=== PATIENT | male | born 1960 | race Caucasian/White ===

== ENCOUNTER 2023-12-04 00:52 | Observation (INO) | payer BC, SELFPAY ==
[2023-12-03 19:40] VITALS: BP 136/93
[2023-12-03 19:50] VITALS: BMI 28.7
--- NOTE | 2023-12-03 19:51 | EDRN ---
Pt reports hx of prostate cancer with radiation, has had about 1.5 weeks of urinating and at the end of the stream with drops of blood. Last night when he voided it was all blood. Pt states he takes aspirin and brilinta and last night was having
shoulder pain so he took a few advil. Pt was in [facility] and before he got on the plane around 11am urinated blood with 'tissue' in it. Pt has not been able to urinate since. Pt reports bladder discomfort.
[2023-12-03 20:58] VITALS: BP 122/85
[2023-12-03 20:59] LABS: % Eosinophils 4.5 % (0-6); % Immature Granulocytes 0.2 % (0-0.5); % Lymphocytes 16.1 % (20.5-51.1); % Monocytes 10.2 % (1.7-9.3); Absolute Basophils 0.1 10^3/uL (0-0.2); Absolute Eosinophils 0.3 10^3/uL (0-0.7); Absolute Monocytes 0.6 10^3/uL (0.1-0.6); Absolute Neutrophils 4.3 10^3/uL (1.4-6.5); Hematocrit 36.4 % (39.0-52.0); Hemoglobin 13.5 g/dL (13.0-18.0); Mean Corp Hgb Conc. 37.1 g/dL (33.0-37.0); Mean Corpuscular Volume 94.3 fL (80.0-94.0); Mean Platelet Volume 9.9 fL (7.4-10.4); Nucleated Red Blood Cells % 0 % (-); Platelet Count 224 10^3/uL (130-400); Red Blood Cell Count 3.86 10^6/uL (4.70-6.10); Red Cell Dist. Width 12.8 % (11.5-14.5); White Blood Cell Count 6.3 10^3/uL (4.8-10.8)
[2023-12-03 21:01] VITALS: BP 106/83
[2023-12-03 21:12] LABS: Blood Urea Nitrogen 21 mg/dl (9-20); Calcium 9.2 mg/dl (8.4-10.2); Carbon Dioxide 23 mmol/L (22-30); Chloride 108 mmol/L (98-107); Estimated Creatinine Clearance 86 ml/min; Glucose 89 mg/dl (70-99); Potassium 3.8 mmol/L (3.5-5.1); Sodium 137 mmol/L (135-145); eGFR > 60.00
[2023-12-03] MEDS: TYLENOL 1000 MG PO (21:31)
[2023-12-03 22:00] VITALS: BP 123/64
--- NOTE | 2023-12-03 22:38 | ED.GENMED ---
History of Present Illness
General
Chief Complaint: Male Genito-Urinary Symptoms
Source: patient
Exam Limitations: none
Time Seen by Provider: 12/03/23 20:30
History of Present Illness
History of Present Illness:
Patient with hematuria that started in the last 24 hours. Resulting clots cause urinary obstruction. Presents with lower abdominal pain pressure. Some bleeding 2 weeks ago. Remote history of prostate CA prostatectomy/radiation. 2018 2019. No
fever chills or infectious symptoms
Past History
Past History
ED Past Medical History: CAD, Cancer (Prostates CA), Hypercholesterolemia, AL and Other (History of migraines, history of snoring, history of back pain, history of arthritis, history of fractures); Negative HTN
ED Past Surgical History: Cardiac (stent for STEMI in 2013 to RCA) and Urological
Social History
Tobacco: Non-smoker
Personal:
Living: with family
Employment: Employed
Family History
Family History: Negative Early CAD
Review of Systems
Review of Systems
All Other Systems: Not applicable
Constitutional: Denies fever or chills
Phy Exam
Physical Exam
Physical Exam:
GENERAL: Alert and oriented in no apparent distress
EYE: Orbits normal.
CARDIAC: Regular rate and rhythm without any obvious murmurs.
LUNGS: Clear breath sounds,normal
ABDOMEN: Soft, without focal tenderness or distention.
: Lafleur in place. Large amount of [place] colored blood with clots. Multiple irrigations done by RN. Clearing with CBI
NEUROLOGICAL: Alert and oriented , grossly non-focal
SKIN: Warm and dry, no rash or lesion, no discoloration, skin intact.
MUSCULOSKELETAL: No edema,no deformity.Good color
PSYCH: Normal and appropriate interaction.
Course
Orders/Labs/Results
Orders:
Orders
12/03/23 20:07
Lidocaine 2% [Lidocaine Uro-Jet 2%] 1 syringe .ROUTE .[facility]
12/03/23 20:38
IV Insert/Care/Rem.- Treatment PRN
Urinalysis Reflex To Culture Urgent
12/03/23 20:39
Type+Screen Urgent
IV Insert/Care/Rem.- Treatment PRN
12/03/23 20:53
Basic Metabolic Panel Urgent
Complete Blood Count/With Diff Urgent
12/03/23 21:29
Acetaminophen [Tylenol] 1,000 mg .ROUTE .[facility]
12/03/23 21:30
Acetaminophen [Tylenol] 1,000 mg PO NOW STA
Abnormal Lab Results
12/03/23
20:53
RBC 3.86 L 10^6/uL
(4.70-6.10)
Hct 36.4 L %
(39.0-52.0)
MCV 94.3 H fL
(80.0-94.0)
MCH 35.0 H pg
(27.0-31.0)
MCHC 37.1 H g/dL
(33.0-37.0)
Absolute Lymphs (auto) 1.0 L 10^3/uL
(1.2-3.4)
Lymphocytes % 16.1 L %
(20.5-51.1)
Monocytes % 10.2 H %
(1.7-9.3)
Chloride 108 H mmol/L
(98-107)
BUN 21 H mg/dl
(9-20)
12/03/23 20:53
12/03/23 20:53
Vital Signs
Initial and Last Documented VS:
Initial Vital Signs
Temp Pulse Resp BP Pulse Ox
97.7 F 90 18 136/93 95
12/03/23 19:40 12/03/23 19:40 12/03/23 19:40 12/03/23 19:40 12/03/23 19:40
Last Documented Vital Signs
Temp Pulse Resp BP Pulse Ox
98.1 F 67 16 123/64 98
12/03/23 20:58 12/03/23 22:00 12/03/23 22:00 12/03/23 22:00 12/03/23 22:00
MDM/Problems Addressed
Differential Diagnosis Includes:
Patient with clots obstruction. Bleeding likely secondary to Brilinta/aspirin/radiation cystitis issues. However with the amount of declotting he needed warrants continuous CBI overnight irrigation and decision on patient's antiplatelet agents.
Discussed with urology
*Critical Care Note
Total Time (30-74mins, 75-104mins- exclusive of procedures): Not Applicable
ED Attending Note
-
Portions of this chart may have been created with voice recognition software.� Occasional wrong word or��sound alike� substitutions may have occurred due to the inherent limitations of voice recognition software.
Discharge Plan
Departure
Patient Disposition: Admit
Date of Disposition: 12/03/23
Time of Disposition: 22:40
Presentation/result/management discussed w/ accepting MD/DO: Urology
Discharge Problem:
Gross hematuria/clots, History of prostate CA/radiation
Prescriptions:
No Action
multivitamin [Multi-Day] 1 EACH tablet
1 ea PO DAILY
atorvastatin 80 MG tablet
80 mg PO HS
aspirin 81 MG tablet,delayed release (DR/EC)
81 mg PO HS
ezetimibe 10 MG tablet
10 mg PO DAILY
ticagrelor [Brilinta] 90 MG tablet
90 mg PO BID Qty: 90 3RF
nitroglycerin 0.4 MG tablet, sublingual
0.4 mg sublingual [id number] PRN (Reason: chest pain) Qty: 30 3RF
albuterol sulfate 1 PUFF HFA aerosol inhaler
1 puff inhalation R Q4HPRN PRN (Reason: cough/chest tightness) Qty: 1 0RF
apixaban [Eliquis] 5 MG tablet
5 mg PO BID
metoprolol succinate 12.5 MG tablet extended release 24 hr
12.5 mg PO DAILY
cephalexin 250 MG capsule
750 mg PO QID Qty: 92 0RF
Referrals:
UNKNOWN - PT DOES,NOT KNOW [Family Provider] -
Interventions
Interventions:
*Risk Screen - Suicide Last Done: 12/03/23 19:40
*General Assessment Last Done: 12/03/23 19:40
*Neglect/Abuse Screening Last Done: 12/03/23 19:40
ED- Fall Risk Assessment Last Done: 12/03/23 19:40
*ED COVID-19 Vaccine History Last Done: 12/03/23 19:40
ED-Male Genitourinary Assessment Last Done: 12/03/23 19:58
Discharge Date and Time
Print Language: KAZAKH
[2023-12-03 23:00] VITALS: BP 128/84
--- NOTE | 2023-12-03 23:57 | HPS.HSE ---
Family Physician
-
Family Physician: NOT KNOW UNKNOWN - PT DOES
Chief Complaint
-
Hematuria
History of Present Illness
63yo Pleasant male with PMH CAD s/p NC (2013) s/p RCA stent with in-stent restenosis (2015) on Brilinta and bASA, HTN/HLD, Prostate Ca s/p Prostatectomy (2018) and Radiation (2021), GERD who presents to ER with hematuria. Pt states 2 weeks ago prior
to vacation he noticed occasional bright blood at the end of his urine stream. He states over the last few days while on vacation in [facility] he noticed increased amount of blood but also clots which was unusual for him (notes hx radiation cystitis
with single occurrence in 2020 while in [place]). He reports right shoulder pain yesterday for which he took 2 OTC naproxens leading to increased bleeding with clots today. Also reported difficulty voiding without pain prompting ER
evaluation. Denies fever, chills, dizziness/LH, CP, Palps, wheezing, cough, sob, abd pain, flank pain, hx kidney stones, dysuria, recent UTIs, calf or leg pain/swelling.
Of note pt was previously on plavix and aspirin after initial stent in 2013. He was taken off plavix after first year but restarted on brilinta after in-stent restenosis in [address] Hudson. Last dose of aspirin/plavix 12/02.
ER course: Pt presents with BP 106/83 -> 128/84 other V.S.S. Hgb 13.5 g/dL (above prior baselines). WBC 6.3K. BUN/Cr 21/0.9. S/P Tylenol 1000mg in ER. S/P 3-way Leggett insertion with CBI initiated. Case D/W urology. Cardio consulted for evaluation of
DAPT therapy.
Medical History
Past Medical History
Past Medical History: Reports Other (CAD s/p NC (2013) s/p RCA stent with in-stent restenosis (2015), HTN/HLD, Prostate Ca s/p Prostatectomy (2019) and Radiation (2021), GERD )
Past Surgical History: Reports Other (Coronary Stent (RCA - 2014, in-stent restenosis 2016), Prostatectomy (2019))
Social History
Tobacco: Non-smoker
Alcohol: Occasional
Drug: None
Personal:
Living: With Family
Employment: Employed
Family History
Family History: Other (Father with CAD/HTN/HLD/CABGx3. Brother with CBAGx3. Mother with HLD. Denies relevant renal/prostate family history. )
Allergies / Home Medications
Allergies reflects when Allergies were last updated in [employer].
Home Medications with original date entered in [employer]
Allergy/Medication List:
Allergies
Allergy/AdvReac Type Severity Reaction Status Date / Time
itraconazole [From Sporanox] Allergy Rash Verified 12/03/23 19:40
Enviornmental Allergy Stuffy Uncoded 12/03/23 19:40
nose,
watery eyes
SPORINEX Allergy Rash Uncoded 12/03/23 19:40
Home Medications
aspirin 81 mg tablet,delayed release 81 mg PO HS Blood clot prevention/tx 07/20/15
atorvastatin 80 mg tablet 80 mg PO HS High cholesterol 07/20/15
ezetimibe 10 mg tablet 10 mg PO DAILY High cholesterol 07/20/15
multivitamin (Multi-Day tablet) 1 ea PO DAILY Supplement 07/20/15
nitroglycerin 0.4 mg sublingual tablet 0.4 mg sublingual [id number] PRN chest pain ##30 07/22/15
ticagrelor 90 mg tablet (Brilinta) 90 mg PO BID ##90 07/22/15
fluticasone propionate 50 mcg/actuation nasal spray,suspension 1 spray intranasal Q12H 12/03/23
montelukast 10 mg tablet (Singulair) 10 mg PO QHS 12/03/23
omeprazole 20 mg tablet,delayed release 20 mg PO DAILY 12/03/23
Review of Systems
-
A 12 point ROS was completed and negative except as noted: Yes
Physical Exam
Vital Signs
Vital Signs
Temp Pulse Resp BP Pulse Ox
98.1 F 64 18 128/84 96
12/03/23 20:58 12/03/23 23:00 12/03/23 23:00 12/03/23 23:00 12/03/23 23:00
Physical Exam
General: Well Developed, Well Nourished and No Apparent Distress
HEENT: NormoCephalic, Moist mucous membranes and Atraumatic
Respiratory: Clear
Cardiac: S1/S2 and Regular Rhythm; No Murmur or Rub
GI: Soft, Non Tender, Non Distended and Normal Bowel Sounds; No Organomegaly
Rectal: Deferred by Provider
Genito-urinary: No costovertebral tender and Other (Leggett connected to CBI draining chrissy urine. No obvious blood. )
Musculoskeletal: No Clubbing, No Cyanosis and No Edema
Skin: No Rash
Neuro: Awake, Alert, Oriented, AO x 3, No Motor Deficits and Nonfocal/grossly intact
Psych: Calm
Laboratory Results
-
12/03/23 20:53
12/03/23 20:53
Data Reviewed
-
Lab Data: Labs Reviewed by me
Old Records: Reviewed
Impression/Plan
-
Hematuria with Clots / Hx Radiation Cystitis
- Initiation of hematuria with progression and development of clots over last few days. Today noted difficulty voiding
- 3-way leggett placed. CBI initiated. Titrate to clear
- Aspirin/Brilinta on hold. To be reassessed by cardiology
- Low suspicion for acute urologic intervention. Will continue diet
- UA not obtained on admission. Order in place, though low yield with CBI in place.
- Consult urology for any further recs
CAD s/p NC / HTN / HLD
- RCA stent 2013 with in-stent restenosis 2016. Holding aspirin/plavix in setting of hematuria.
- Continue home statin
- Will consult cardiology to reassess DAPT therapy. Question whether brilinta monotherapy may be an option if bleeding becomes more frequent.
Hx Prostate Ca - S/P Prostatectomy [address] Gloria at [facility] and Radiation 2021. Follows with Dr. Weinberg at [place]. Continue outpatient followup.
GERD - PPI
Diet: Lipid Lowering
DVT PPx: Sequential SCDs
Code Status: Full
[2023-12-04] VITALS: BP 104/60
--- NOTE | 2023-12-04 01:01 | PTCARENOTE ---
Pt received from ED to rm [id number]. Pt oriented to room and call frost.
[2023-12-04 01:10] VITALS: BP 138/82; BMI 28.5
[2023-12-04] MEDS: TYLENOL 650 MG PO ×2 (05:56→19:46)
[2023-12-04] MEDS: PROTONIX 40 MG PO (07:23)
[2023-12-04] MEDS: ZETIA 10 MG PO (07:23)
[2023-12-04] MEDS: THERAGRAN 1 TABLET PO (07:23)
[2023-12-04 08:12] VITALS: BP 109/66
--- NOTE | 2023-12-04 08:24 | W.PN.HOSP.TC ---
Today's Communication/Plan
-
follow up uro and cards recs
maintain 3way leggett until Uro provide direction
follow up hgb
hold dapt
discuss with cards birlinta monotherapy vs dapt
Assessment / Plan
Assessment / Plan
NAD, resting comfortably in bed
Scleral anicteric
Moist mucous membranes
No JVD
CTA bilateral
Normal S1-S2 no murmurs
Soft nontender nondistended bowel sounds active
No peripheral pitting edema
3way f oley with lear yellow urin, no clots no blood
Moves extremities spontaneously
AAOx3
Hematuria with likely radiation cystitis on DAPT, s/p CBI with 3 way leggett
-Unlikley needs durgery as urine already cleared
-Likely will need a cystoscopy but would appreciate on Uro rec for when this will be done inpatient vs outpatient
-If able to remove 3way leggett today, will need to see if able to urinate on and without clots/hematuria
-Dapt held
-AM Hgb pending
CAD s/p [place] / HTN / HLD
- RCA stent 2013 with in-stent restenosis 2015. Holding aspirin/plavix in setting of hematuria.
- Continue home statin
- Cardiology to reassess DAPT therapy. Question whether brilinta monotherapy may be an option if bleeding becomes more frequent.
Hx Prostate Ca
- S/P Prostatectomy [address] Gloria at [facility] and Radiation 2021. Follows with Dr. Weinberg at [place]. Continue outpatient followup.
GERD
- PPI
Anticipated Discharge: 24 - 48 hours
Subjective/Interval History
-
Date of Service: December 04, 2023
seen and examiend
no new complaints
no acute overnighte events
states he ahs never needed a cbi
prviously on dapt for restenosis of cor artery in 2013
dx with prostate ca in 2019 with prostectomy
2020 had radiation
previously had hematuria without clots, resolved on it own
was in [place] when he began with hematuria and some urinary difficulties
by the time he go home he was not able to urinate
three leggett placed with cbi started
now with clear urine
cbi off
admits to feeling uncomfortable and penile achiness
asking when the three way leggett will be removed
Objective Data
-
Labs:
Laboratory Results
12/03/23 12/04/23
20:53 07:34
WBC 6.3 Pending
Hgb 13.5 Pending
Hct 36.4 L Pending
Plt Count 224 Pending
PT Pending
INR Pending
APTT Pending
Sodium 137 Pending
Potassium 3.8 Pending
Chloride 108 H Pending
Carbon Dioxide 23 Pending
BUN 21 H Pending
Creatinine 0.9 Pending
Glucose 89 Pending
Calcium 9.2 Pending
Vital Signs:
Vital Signs
Temp Pulse Resp BP Pulse Ox
97.9 F 69 20 109/66 98
12/04/23 08:12 12/04/23 08:12 12/04/23 08:12 12/04/23 08:12 12/04/23 08:12
I&O
12/03/23 12/04/23 12/05/23
06:59 06:59 06:59
Output Total 400 / 400
Balance -400 / -400
[2023-12-04 08:36] LABS: % Basophils 0.4 % (0-2); % Eosinophils 2.1 % (0-6); % Immature Granulocytes 0.4 % (0-0.5); % Monocytes 8.3 % (1.7-9.3); % Neutrophils 82.8 % (42.2-75.2); Absolute Eosinophils 0.2 10^3/uL (0-0.7); Absolute Lymphocytes 0.5 10^3/uL (1.2-3.4); Absolute Monocytes 0.6 10^3/uL (0.1-0.6); Absolute Neutrophils 6.4 10^3/uL (1.4-6.5); Hematocrit 38.2 % (39.0-52.0); Hemoglobin 13.4 g/dL (13.0-18.0); Mean Corp Hgb Conc. 35.1 g/dL (33.0-37.0); Mean Corpuscular Hgb 34.6 pg (27.0-31.0); Mean Corpuscular Volume 98.7 fL (80.0-94.0); Mean Platelet Volume 10.3 fL (7.4-10.4); Nucleated Red Blood Cells % 0 % (-); Platelet Count 201 10^3/uL (130-400); Red Blood Cell Count 3.87 10^6/uL (4.70-6.10); Red Cell Dist. Width 12.9 % (11.5-14.5); White Blood Cell Count 7.7 10^3/uL (4.8-10.8)
[2023-12-04 08:41] LABS: INR 1.03; PT 13.3 Sec (11.4-14.6)
[2023-12-04 08:42] LABS: APTT 26.4 Sec (23.4-35.0)
[2023-12-04 09:20] LABS: Blood Urea Nitrogen 18 mg/dl (9-20); Calcium 9.1 mg/dl (8.4-10.2); Carbon Dioxide 25 mmol/L (22-30); Chloride 105 mmol/L (98-107); Estimated Creatinine Clearance 78 ml/min; Glucose 113 mg/dl (70-99); Sodium 136 mmol/L (135-145); eGFR > 60.00
--- NOTE | 2023-12-04 09:27 | PTCARENOTE ---
3way leggett removed as per MD order. patient voided in the bathroom with blood tinged urine
--- NOTE | 2023-12-04 11:11 | W.PN.URO.CBU ---
Today's Communication / Plan
-
FILWY OUT ENCOURAGE FLYIDS NEEDS CARDILOGY TOCOMMENT ON BRLINTA BEFORE DISCHARGE
Assessment / Plan
-
HEMATUIRA RESOLVED WITH MOST LIKLEY ETIOLOGY BEING BRLINTA ASA BLEEDING OF HEMORRHAGIC CYSTIS BUT PT AWARE HE NEEDS OUTPATIENT CYSTO TO R/OUT RTCC ETC NEEDS CARDIOLOGYINPUT TODAY TO SEE IF CAN STOP BRLINTA
Diagnosis
-
Date of Service: December 04, 2023
-
Patient Diagnosis:hematuira and clot retntion oin pt on brlinta and asa for restaosis of coronart=y stent but persona h/o prosta cance s/p removal and flolowed wth xrt 2018 no dysuri FREQUENCY COLIC
Post Op Day:
Subjective
-
URINE CLEAR ASX
Objective
-
Vital Signs
Temp Pulse Resp BP Pulse Ox
97.9 F 69 20 109/66 98
12/04/23 08:12 12/04/23 08:12 12/04/23 08:12 12/04/23 08:12 12/04/23 08:12
Intake and Output
12/03/23 12/04/23 12/05/23
06:59 06:59 06:59
Output Total 400 / 400
Balance -400 / -400
Output:
True Urine Output from CBI 400 / 400
Laboratory Results
12/04/23 07:34
12/04/23 07:34
Review of Systems
-
: Difficulty Voiding and Bleeding
Physical Exam
-
General - well developed, well nourished, no acute distress
Chest - clear bilaterally
Abdomen - soft, non-tender, positive bowel sounds, no CVAT, no incisional pain or distention
Genitalia - normal
Rectal - normal
Skin - warm & dry with no rash
Neuro - AOx3, no motor deficits
Extremities - no clubbing, no cyanosis, no edema
Incision - clean, dry
Dressing - clean, dry, intact
Care Review
Data Reviewed
Discussed with: Hospitalist and Nursing
--- NOTE | 2023-12-04 12:08 | CON.CAR ---
Consultation
Consultation Request
Date/Time Consultation Requested: 12/23
Date/Time Consultation Performed: 12/08/23
Requesting Provider: Dr. Cuba
Performing Provider: Dr. Botello
Reason for Consultation: Hematuria
Medical History
-
Chief Complaint: Hematuria
History of Present Illness:
63-year-old male (previously known to Dr. Hudson) with coronary artery disease (IMI status-post SALINAS to RCA 11/2013 with subsequent stent restenosis and SALINAS 07/2015 placement; on chronic DAPT with aspirin/Brilinta), prostate cancer status-post
prostatectomy and radiation therapy (HUP) presenting with hematuria. The patient states that he has been experiencing progressive hematuria over the past 2 weeks. He denies any chest pain or shortness of breath. No other cardiac symptoms.
Past Medical History
Past Medical History: CAD, GERD and Other (Prostate cancer)
Past Surgical History: Cardiac (Coronary stenting) and Urological (Prostatectomy (2019))
Social History
Tobacco: Non-Smoker
Alcohol: Occasional
Drug: None
Personal:
Living: With Family
Family History
Family History: CAD
Allergies / Home Medications
Allergy/AdvReac Type Severity Reaction Status Date / Time
itraconazole [From Sporanox] Allergy Rash Verified 12/03/23 19:40
Enviornmental Allergy Stuffy Uncoded 12/03/23 19:40
nose,
watery eyes
SPORINEX Allergy Rash Uncoded 12/03/23 19:40
�Medication �Instructions �Recorded �Confirmed �Type
aspirin 81 mg tablet,delayed 81 mg PO HS Blood clot 07/20/15 12/04/23 History
release prevention/tx
atorvastatin 80 mg tablet 80 mg PO HS High cholesterol 07/20/15 12/04/23 History
ezetimibe 10 mg tablet 10 mg PO DAILY High cholesterol 07/20/15 12/04/23 History
multivitamin (Multi-Day tablet) 1 ea PO DAILY Supplement 07/20/15 12/04/23 History
nitroglycerin 0.4 mg sublingual 0.4 mg sublingual [id number] PRN 07/22/15 12/04/23 Rx
tablet chest pain ##30
ticagrelor 90 mg tablet (Brilinta) 90 mg PO BID ##90 07/22/15 12/04/23 Rx
fluticasone propionate 50 1 spray intranasal Q12H 12/03/23 12/04/23 History
mcg/actuation nasal
spray,suspension
montelukast 10 mg tablet 10 mg PO QHS 12/03/23 12/04/23 History
(Singulair)
omeprazole 20 mg tablet,delayed 20 mg PO DAILY 12/03/23 12/04/23 History
release
Review of Systems
-
History Source: Patient
All other systems: Negative unless noted
Physical Exam
Vital Signs
Temp Pulse Resp BP Pulse Ox
97.9 F 69 20 109/66 98
12/04/23 08:12 12/04/23 08:12 12/04/23 08:12 12/04/23 08:12 12/04/23 08:12
Lab Results
12/04/23 07:34
12/04/23 07:34
Physical Exam
General: No Apparent Distress and Comfortable
HEENT: Normocephalic
Respiratory: Clear
Cardiac: S1/S2 and Regular Rhythm
Breast: N/A
GI: Soft
Rectal: Deferred by Provider
Musculoskeletal: No Clubbing, No Cyanosis and No Edema
Neuro: AO x 3
Psych: Calm
Impression / Plan
-
63-year-old male (previously known to Dr. Hudson) with coronary artery disease (IMI status-post SALINAS to RCA 11/2013 with subsequent stent restenosis and SALINAS 07/2015 placement; on chronic DAPT with aspirin/Brilinta), prostate cancer status-post
prostatectomy and radiation therapy (HUP) presenting with hematuria. The patient states that he has been experiencing progressive hematuria over the past 2 weeks. He denies any chest pain or shortness of breath. No other cardiac symptoms.
CAD (on chronic DAPT)/hematuria:
-The patient last underwent coronary stenting in 2015.
-Recommend discontinuing of Brilinta at this time; long-term DAPT is likely not needed, especially given bleeding risk.
-Resume aspirin 81 mg daily once cleared by Urology.
-Continue atorvastatin 80 mg daily and Zetia 10 mg daily.
-Patient can follow-up with Cardiology as outpatient.
Data Reviewed
-
Labs: Labs Reviewed by me
--- NOTE | 2023-12-04 12:59 | PTCARENOTE ---
patient complained of not being able to void. bladder scanned with [address] Laws ordered [address] leggett reinsert. patient tolerated leggett placement, 800 ml bloody urine with clots drained into a bag post leggett insertion.
[2023-12-04 15:58] VITALS: BP 128/78
[2023-12-04] MEDS: SINGULAIR 10 MG PO (21:27)
[2023-12-04] MEDS: LIPITOR 80 MG PO (21:27)
[2023-12-04 23:50] VITALS: BP 116/68
--- NOTE | 2023-12-05 06:07 | W.PN.HOSP.TC ---
Today's Communication/Plan
-
discharge
Assessment / Plan
Assessment / Plan
Physical
General: NAD, sitting up comfortably in chair
HEENT: Scleral anicteric Moist mucous membranes
Neck: No JVD
Resp: CTA bilateral
Cardio: Normal S1-S2 no murmurs
GI: Soft nontender nondistended bowel sounds active
Ext No peripheral pitting edema
: Lafleur in place, no gross hematuria
Neuro: AAOx3
Psych: Calm
63M CAD Stent 2016 on DAPT HTN HLD remote hx Prostate Ca s/p Prostatectomy Radiation p/w progressive gross hematuria over past 2 weeks.
Hematuria with possible radiation cystitis on DAPT
-urine since cleared following CBI and hold DAPT
-H&H stable
Acute Urinary Retention
-failed trial of avoid, urology eval appreciated stable for discharge outpt follow up with his urologist Dr. Weinberg for TOV, ok to resume home ASA.
CAD s/p [place] / HTN / HLD
- RCA stent 2013 with in-stent restenosis 2015. DAPT held as above
- Continue home statin
- Cardiology eval appreciated, ok to DC Brilinta, cont w/ ASA monotherapy
Hx Prostate Ca
- S/P Prostatectomy [address] Gloria at [facility] and Radiation 2021. Follows with Dr. Weinberg at [place]. Continue outpatient follow up.
GERD
- PPI
Medically stable for discharge home with outpatient follow up recommendations.
Total Time Preparing Discharge __40 minutes including examination of the patient, summary of the hospital stay, instructions for continuing care to all relevant caregivers; and preparation of discharge records, prescriptions, and referral
forms if necessary.
Anticipated Discharge: Today
Subjective/Interval History
-
Date of Service: December 05, 2023
Seen and examined at bedside in no acute distress ambulating halls without issues. Urine clear of gross hematuria. Failed trial of void. Patient otherwise feels well, looking forward to going home.
Objective Data
-
Vital Signs:
Vital Signs
Temp Pulse Resp BP Pulse Ox
98.4 F 68 18 116/68 97
12/04/23 23:50 12/04/23 23:50 12/04/23 23:50 12/04/23 23:50 12/04/23 23:50
I&O
12/03/23 12/04/23 12/05/23
06:59 06:59 06:59
Intake Total 960 / 960
Output Total 400 / 400 1475 / 1475
Balance -400 / -400 -515 / -515
[2023-12-05 07:49] VITALS: BP 118/84
[2023-12-05] MEDS: THERAGRAN 1 TABLET PO (08:08)
[2023-12-05] MEDS: PROTONIX 40 MG PO (08:08)
[2023-12-05] MEDS: ZETIA 10 MG PO (08:08)
[2023-12-05] MEDS: OCEAN, SALINE MIST 1 SPRAYS NASAL (09:56)
--- NOTE | 2023-12-05 10:45 | PTCARENOTE ---
Pt's leggett removed at 0905 [address] am as per Dr. Laws's order. Pt unable to urinate and asked to be scanned. Pt scanned for 421ml. As per Dr. Laws's order, leggett to be reinserted if pt unable to void. #16fr leggett reinserted without difficulty.
Return of yellow/pink tinged urine with blood strands noted.
--- NOTE | 2023-12-05 13:04 | W.PN.URO.CBU ---
Today's Communication / Plan
-
if no void replace leggett and show pt leg bag and leggett care
Assessment / Plan
-
B rlinta stopped urine clear of cbi for voiding trial today if fail home with leggett
Diagnosis
-
Date of Service: December 05, 2023
-
Patient Diagnosis:
Post Op Day:
Patient Diagnosis:hematuira and clot retntion oin pt on brlinta and asa for restaosis of coronart=y stent but persona h/o prosta cance s/p removal and flolowed wth xrt 2018 no dysuri FREQUENCY COLIC
Post Op Day:
Subjective
-
coild not void yesterday flley replaced and irrigate comletely clear today would like voiding trial
Objective
-
Vital Signs
Temp Pulse Resp BP Pulse Ox
98.6 F 85 19 118/84 95
12/05/23 07:49 12/05/23 07:49 12/05/23 07:49 12/05/23 07:49 12/05/23 07:49
Intake and Output
12/04/23 12/05/23 12/06/23
06:59 06:59 06:59
Intake Total 960 / 960 480 / 480
Output Total 400 / 400 1475 / 1475 1600 / 1600
Balance -400 / -400 -515 / -515 -1120 / -1120
Intake:
Oral fluids 960 / 960 480 / 480
Output:
Urine, Leggett 1475 / 1475 1600 / 1600
True Urine Output from CBI 400 / 400
Laboratory Results
12/04/23 07:34
12/04/23 07:34
Review of Systems
-
: Difficulty Voiding
Physical Exam
-
General - well developed, well nourished, no acute distress
Chest - clear bilaterally
Abdomen - soft, non-tender, positive bowel sounds, no CVAT, no incisional pain or distention
Genitalia - normal
Rectal - normal
Skin - warm & dry with no rash
Neuro - AOx3, no motor deficits
Extremities - no clubbing, no cyanosis, no edema
Incision - clean, dry
Dressing - clean, dry, intact
Care Review
Data Reviewed
Discussed with: Nursing
--- NOTE | 2023-12-05 13:10 | CM ---
manager research development reviewed patient's chart and met with patient and spouse at bedside, patient lives in a 2 story home, is independent with adl's and ambulation, no dme, patient drives. Patient was admitted under observation, OBS letter completed and
placed on chart.
Pharmacy: [facility].
Plan; Home when stable, no needs.
--- NOTE | 2023-12-05 13:53 | PTCARENOTE ---
As per Dr Laws's note, leg bag teaching was discussed witjh patient. PT has previous experience with leg bag use. Will reinforce teaching at discharge
[2023-12-05 15:18] VITALS: BP 118/71
--- NOTE | 2023-12-05 18:20 | W.DCSUMMARY ---
Discharge Summary
Discharge Data
Date of Admission: 12/04/23
Date of Discharge: 12/05/23
-
Pending Results: No
Discharge Plan
-
Patient Disposition: Home (Routine Discharge)
Discharge Diagnosis/Procedures: Acute Urinary Retention
Hematuria
Possible Radiation Cystitis
Coronary Artery Disease
Condition: Good
Diet: Low Cholesterol and 2 Gram Sodium
Activity: As tolerated
Driving Restrictions: As prior to admission
Bathing Restrictions: None
Blood Work: Repeat CBC BMP and check B12 level with primary care provider in 1 week of discharge. (Macrocytosis noted on CBC but without significant Anemia)
Activity Restrictions/Additional Instructions:
Follow up with your primary care provider and Urologist in 1 week of discharge. Cardiology in 2-4 weeks of discharge.
Brilinta has been discontinued due to gross hematuria.
Please take medications as prescribed/recommended and follow up with primary care provider and/or other healthcare provider involved in your care for refills and/or further adjustment to your medication regimen as necessary.
Instructions: How to Care for Your Lafleur Catheter, Male
Referrals:
Manuel Laws MD [Active] - (Follow up Dr Omer for hematuria. Expect blood on and off in urine increase fluid intake when blood is noted. )
Yon Hudson MD [Active] - in two to four weeks
UNKNOWN - PT DOES,NOT KNOW [Family Provider] -
Prescriptions:
Continued
multivitamin [Multi-Day] 1 EACH tablet
1 ea PO DAILY
atorvastatin 80 MG tablet
80 mg PO HS
aspirin 81 MG tablet,delayed release (DR/EC)
81 mg PO HS
ezetimibe 10 MG tablet
10 mg PO DAILY
nitroglycerin 0.4 MG tablet, sublingual
0.4 mg sublingual [id number] PRN (Reason: chest pain) Qty: 30 3RF
montelukast [Singulair] 10 mg Tablet
10 mg PO QHS
fluticasone propionate 50 mcg/actuation [place],Suspension
1 spray INTRANASAL Q12H
omeprazole 20 mg Tablet,Delayed Release (Dr/Ec)
20 mg PO DAILY
fexofenadine 30 mg Tablet
30 mg DAILY
Discontinued
Brilinta 90 MG tablet
90 mg PO BID Qty: 90 3RF
Discharge Orders:
Discharge Patient (As Directed); Ordered 12/05/23
Ordered By: Aide Flowers
Discharge Date and Time
Print Language: KHMER
[2023-12-05 20:33] LABS: Hepatitis C Antibody Negative (Negative)
== END 2023-12-05 19:18 | disposition home or self-care (01) ==
LOC: 4 WEST ACU 00:52
PROVIDERS: ADMITTING PHYSICIAN Internal Medicine; ATTENDING PHYSICIAN Internal Medicine; CONSULT PHYSICIAN Internal Medicine; CONSULT PHYSICIAN Specialist; EMERGENCY PHYSICIAN Emergency Medicine
DX: R33.9 Retention of urine, unspecified (principal); R31.0 Gross hematuria; R10.30 Lower abdominal pain, unspecified; I25.2 Old myocardial infarction; K21.9 Gastro-esophageal reflux disease without esophagitis; M25.511 Pain in right shoulder; I10 Essential (primary) hypertension; E78.00 Pure hypercholesterolemia, unspecified; I25.10 Atherosclerotic heart disease of native coronary artery without angina pectoris; Z95.5 Presence of coronary angioplasty implant and graft; Z85.46 Personal history of malignant neoplasm of prostate; Z92.3 Personal history of irradiation; Z79.82 Long term (current) use of aspirin; Z79.01 Long term (current) use of anticoagulants; Z90.79 Acquired absence of other genital organ(s); Z82.49 Family history of ischemic heart disease and other diseases of the circulatory system; Z83.49 Family history of other endocrine, nutritional and metabolic diseases; Z88.3 Allergy status to other anti-infective agents
CPT/HCPCS: 51702; 51798; 80048; 85025; 85610; 85730; 86803; 86850; 86900; 86901; 93005; 99285; G0378

== ENCOUNTER 2023-12-20 16:58 | Emergency (ER) | payer BC, SELFPAY ==
[2023-12-20 17:00] VITALS: BP 146/95
[2023-12-20 17:30] VITALS: BMI 28.7
--- NOTE | 2023-12-20 18:21 | ED.GENMED ---
History of Present Illness
General
Chief Complaint: Male Genito-Urinary Symptoms
Source: patient
Time Seen by Provider: 12/20/23 17:06
History of Present Illness
History of Present Illness:
63-year-old male who presents with inability urinate. He was at urology today and they remove the catheter. He was able to void a little bit in the office and maybe a little bit at home but since then he has not been able to urinate and has a lot
of abdominal pain. The patient states that he was drinking lots of fluids as advised by his urologist. No fevers. Did note at the tip of his penis. Patient has a history of prostate cancer. This is the third event where he had to have a
catheter replaced.
Past History
Past History
ED Past Medical History: CAD, Cancer (Prostates [place]), Hypercholesterolemia, [place] and Other (History of migraines, history of snoring, history of back pain, history of arthritis, history of fractures); Negative HTN
ED Past Surgical History: Cardiac (stent for STEMI in 2014 to RCA) and Urological
Social History
Tobacco: Non-smoker
Personal:
Living: with family
Employment: Employed
Family History
Family History: Negative Early CAD
Phy Exam
Physical Exam
Physical Exam:
CONSTITUTIONAL Patient alert and oriented to person, place and time. pain distress noted. Vital signs reviewed.
HEAD atraumatic, normocephalic.
EYES eyelids normal to inspection, Extraocular muscles intact, Conjunctiva normal, Sclera normal.
NECK normal range of motion, Trachea midline, no jugular venous distention.
RESPIRATORY CHEST No respiratory distress noted, Chest expansion equal
ABDOMEN diffuse lower abdominal tenderness, moderate distention
BACK normal inspection, no obvious deformities
UPPER EXTREMITY range of motion normal, Motor strength normal, no cyanosis, no edema.
LOWER EXTREMITY range of motion normal, Motor strength normal, no cyanosis, no edema.
NEURO Speech normal, No focal motor deficits, [place] coma scale 15, Memory normal, Cranial Nerves intact to screening exam.
SKIN skin warm, dry, and normal in color.
Course
Orders/Labs/Results
Orders:
Orders
12/20/23 17:12
Lidocaine 2% [Lidocaine Uro-Jet 2%] 1 syringe .ROUTE .[facility]
Vital Signs
Initial and Last Documented VS:
Initial Vital Signs
Temp Pulse Resp BP Pulse Ox
98.7 F 102 18 146/95 98
12/20/23 17:00 12/20/23 17:00 12/20/23 17:00 12/20/23 17:00 12/20/23 17:00
Last Documented Vital Signs
Temp Pulse Resp BP Pulse Ox
98.7 F 102 18 146/95 98
12/20/23 17:00 12/20/23 17:00 12/20/23 17:00 12/20/23 17:00 12/20/23 17:00
MDM/Problems Addressed
MDM/Problems Addressed:
Acute urinary retention, hematuria
*Pulse Oximetry
Patient hypoxic: no
*Critical Care Note
Total Time (30-74mins, 75-104mins- exclusive of procedures): Not Applicable
Data Reviewed
Review of Other/Old Records Reveals: Discharge Summary (Discharge summary from December 04)
Source: patient
Prescriptions/Medications Considered But Not Given:
Considered antibiotics but patient just had his catheter removed. Will refer to urology
Patient Management
Escalation/DeEscalation of care consider admission/obs:
Patient feels much better. Leave Lafleur in and follow-up with urology
ED Attending Note
-
Portions of this chart may have been created with voice recognition software.� Occasional wrong word or��sound alike� substitutions may have occurred due to the inherent limitations of voice recognition software.
Discharge Plan
Departure
Patient Disposition: Home (Routine Discharge)
Date of Disposition: 12/20/23
Time of Disposition: 18:23
Patient with high blood pressure during this ER visit?: Yes
Discharge Problem:
Acute urinary retention, Hematuria
Instructions: How to Care for Your Lafleur Catheter, Male, Blood in the Urine (Hematuria), Adult (DC), Urinary Retention (DC), BLOOD PRESSURE
Prescriptions:
No Action
multivitamin [Multi-Day] 1 EACH tablet
1 ea PO DAILY
atorvastatin 80 MG tablet
80 mg PO HS
aspirin 81 MG tablet,delayed release (DR/EC)
81 mg PO HS
ezetimibe 10 MG tablet
10 mg PO DAILY
nitroglycerin 0.4 MG tablet, sublingual
0.4 mg sublingual [id number] PRN (Reason: chest pain) Qty: 30 3RF
montelukast [Singulair] 10 mg Tablet
10 mg PO QHS
fluticasone propionate 50 mcg/actuation [place],Suspension
1 spray INTRANASAL Q12H
omeprazole 20 mg Tablet,Delayed Release (Dr/Ec)
20 mg PO DAILY
fexofenadine 30 mg Tablet
30 mg DAILY
Referrals:
Angelique San DO [Family Provider] -
Activity Restrictions/Additional Instructions:
Please see your urologist in the next 3 days for follow-up and reevaluation. Return immediately for no urine in the bag, abdominal pain, fevers or any other concerns.
Interventions
Interventions:
*Risk Screen - Suicide Last Done: 12/20/23 17:30
*General Assessment Last Done: 12/20/23 17:30
*Neglect/Abuse Screening Last Done: 12/20/23 17:30
ED- Fall Risk Assessment Last Done: 12/20/23 17:30
*ED COVID-19 Vaccine History Last Done: 12/20/23 17:30
ED-Male Genitourinary Assessment Last Done: 12/20/23 17:30
Discharge Date and Time
Print Language: AMHARIC
[2023-12-20 18:34] VITALS: BP 115/72
== END 2023-12-20 18:35 | disposition home or self-care (01) ==
LOC: EMR 16:58
PROVIDERS: EMERGENCY PHYSICIAN Emergency Medicine; FAMILY PHYSICIAN Family Medicine
DX: R31.9 Hematuria, unspecified (principal); R33.9 Retention of urine, unspecified; Z85.46 Personal history of malignant neoplasm of prostate
CPT/HCPCS: 99283; 51702

== ENCOUNTER 2023-12-20 20:46 | Emergency (ER) | payer BC, SELFPAY ==
[2023-12-20 20:49] VITALS: BP 144/90
--- NOTE | 2023-12-20 22:15 | ED.GENMED ---
History of Present Illness
General
Chief Complaint: Catheter/Tube Problem
Source: patient
Exam Limitations: none
Time Seen by Provider: 12/20/23 21:01
History of Present Illness
History of Present Illness:
This is 63-year-old male who returns because he cannot get urine into his catheter. He was just here and had a catheter placed due to urinary retention. Patient does note some blood in the bag. Reports lower abdominal pain.
Past History
Past History
ED Past Medical History: CAD, Cancer (Prostates [place]), Hypercholesterolemia, [place] and Other (History of migraines, history of snoring, history of back pain, history of arthritis, history of fractures); Negative HTN
ED Past Surgical History: Cardiac (stent for STEMI in 2013 to RCA) and Urological
Social History
Tobacco: Non-smoker
Personal:
Living: with family
Employment: Employed
Family History
Family History: Negative Early CAD
Phy Exam
Physical Exam
Physical Exam:
CONSTITUTIONAL Vital signs reviewed, Patient alert and oriented to person, place and time. Mild pain distress
HEAD atraumatic, normocephalic.
EYES eyelids normal to inspection, Extraocular muscles intact, Conjunctiva normal, Sclera normal.
NECK normal range of motion, Trachea midline, no jugular venous distention.
RESP no respiratory distress
BACK No obvious deformities
UPPER EXTREMITY Gross Range of motion normal, gross motor strength normal
LOWER EXTREMITY Gross range of motion normal, Gross motor strength normal
NEURO Speech normal, No focal motor deficits include, [place] coma scale 15, Memory normal, Cranial Nerves intact to screening exam.
SKIN Skin warm, dry, and normal in color.
PSYCHIATRIC Patient oriented to person place and time, Normal affect.
Course
Vital Signs
Initial and Last Documented VS:
Initial Vital Signs
Temp Pulse Resp BP Pulse Ox
97.8 F 108 24 144/90 97
12/20/23 20:49 12/20/23 20:49 12/20/23 20:49 12/20/23 20:49 12/20/23 20:49
Last Documented Vital Signs
Temp Pulse Resp BP Pulse Ox
97.8 F 108 24 144/90 97
12/20/23 20:49 12/20/23 20:49 12/20/23 20:49 12/20/23 20:49 12/20/23 20:49
MDM/Problems Addressed
MDM/Problems Addressed:
Hematuria, acute urinary retention
*Pulse Oximetry
Patient hypoxic: no
*Critical Care Note
Total Time (30-74mins, 75-104mins- exclusive of procedures): Not Applicable
Data Reviewed
Source: patient
Patient Management
Escalation/DeEscalation of care consider admission/obs:
Lafleur catheter exchanged for 18 [place]. Irrigated and now yellow urine with no further blood. I suspect clot retention was issue earlier and again today
ED Attending Note
-
Portions of this chart may have been created with voice recognition software.� Occasional wrong word or��sound alike� substitutions may have occurred due to the inherent limitations of voice recognition software.
Discharge Plan
Departure
Patient Disposition: Home (Routine Discharge)
Date of Disposition: 12/20/23
Time of Disposition: 22:16
Patient with high blood pressure during this ER visit?: Yes
Discharge Problem:
Acute urinary retention, Hematuria
Instructions: Blood in the Urine (Hematuria), Adult (DC), BLOOD PRESSURE
Prescriptions:
No Action
multivitamin [Multi-Day] 1 EACH tablet
1 ea PO DAILY
atorvastatin 80 MG tablet
80 mg PO HS
aspirin 81 MG tablet,delayed release (DR/EC)
81 mg PO HS
ezetimibe 10 MG tablet
10 mg PO DAILY
nitroglycerin 0.4 MG tablet, sublingual
0.4 mg sublingual [id number] PRN (Reason: chest pain) Qty: 30 3RF
montelukast [Singulair] 10 mg Tablet
10 mg PO QHS
fluticasone propionate 50 mcg/actuation [place],Suspension
1 spray INTRANASAL Q12H
omeprazole 20 mg Tablet,Delayed Release (Dr/Ec)
20 mg PO DAILY
fexofenadine 30 mg Tablet
30 mg DAILY
Referrals:
Angelique San DO [Family Provider] -
Activity Restrictions/Additional Instructions:
Please see Urology in the next 3 days for follow-up and reevaluation. Return immediately for abdominal pain, intractable vomiting or any other concerns.
Interventions
Interventions:
*Risk Screen - Suicide Last Done: 12/20/23 20:49
*General Assessment Last Done: 12/20/23 21:30
*Neglect/Abuse Screening Last Done: 12/20/23 20:49
*ED COVID-19 Vaccine History Last Done: 12/20/23 21:30
AG-Xpwiuw-Udtpvvbarz Assessment Last Done: 12/20/23 21:15
ED-Male Genitourinary Assessment Last Done: 12/20/23 21:15
Discharge Date and Time
Print Language: KHMER
[2023-12-20 22:34] VITALS: BP 124/68
== END 2023-12-20 22:37 | disposition home or self-care (01) ==
LOC: EMR 20:46
PROVIDERS: EMERGENCY PHYSICIAN Emergency Medicine; FAMILY PHYSICIAN Family Medicine
DX: R33.9 Retention of urine, unspecified (principal); R31.9 Hematuria, unspecified; Z46.6 Encounter for fitting and adjustment of urinary device
CPT/HCPCS: 51702; 51798; 99283

== ENCOUNTER 2023-12-24 13:18 | Emergency (ER) | payer BC, SELFPAY ==
[2023-12-24 13:20] VITALS: BP 148/96
--- NOTE | 2023-12-24 14:58 | ED.GENMED ---
History of Present Illness
General
Chief Complaint: Catheter/Tube Problem
Time Seen by Provider: 12/24/23 13:31
History of Present Illness
History of Present Illness:
63-year-old male with history of radiation cystitis presenting for concern of hematuria and inability to urinate. Patient reports he has been having ongoing hematuria past 2 weeks, requiring Lafleur catheter placement. He follows with [facility]. Reports he saw his urologist in the office last week, had trial of voiding which he passed, however again had retention, requiring Lafleur catheter placement. Reports that the hematuria has been coming and going. Since 10 AM, has had
hematuria, and then was unable to void until he arrived to the hospital. Since arrival to the hospital, passed about 700 cc of urine in his Lafleur bag, red in color with clots. He is not on any anticoagulation. He denies any present abdominal
pain. He denies any fever. Reports when he followed up with the urologist last week, did have a cystoscopy that was unremarkable. He denies additional acute medical complaints.
Past History
Past History
ED Past Medical History: CAD, Cancer (Prostates [place]), Hypercholesterolemia, [place] and Other (History of migraines, history of snoring, history of back pain, history of arthritis, history of fractures); Negative HTN
ED Past Surgical History: Cardiac (stent for STEMI in 2014 to RCA) and Urological
Social History
Tobacco: Non-smoker
Personal:
Living: with family
Employment: Employed
Family History
Family History: Negative Early CAD
Phy Exam
Physical Exam
Physical Exam:
General: Well-appearing, no clinical signs of dehydration, nontoxic and in no acute distress
HEENT: protecting airway
Neck: appears supple
CV: Normal heart rate, regular rhythm, no evidence of cyanosis
Abdomen: Nontender, no distention
Extremities: No deformities, no swelling, no erythema
Neuro: alert, no focal neurologic deficit
: Lafleur in place, red-tinged in color to urine
Rectal: deferred
Psych: Normal affect
Skin: Intact
Course
Orders/Labs/Results
Orders:
Orders
12/24/23 14:24
0.9% Sodium Chloride 1000 ml [Nss] 1,000 ml IV BOLUS
12/24/23 15:18
Complete Blood Count/With Diff Urgent
Comprehensive Metabolic Panel Urgent
PTT Urgent
Prothrombin Time Urgent
Urinalysis Reflex To Culture Urgent
Date Specimen was Collected: 12/24/23
Time Specimen was Collected: 15:13
Urine Microscopic Reflex Cult Urgent
Urine Culture Urgent
KOREY Source: U
Specimen Description:
Obtained by: Random
Date Specimen was Collected: 12/24/23
Time Specimen was Collected: 15:13
Abnormal Lab Results
12/24/23
15:18
RBC 3.99 L 10^6/uL
(4.70-6.10)
Hct 38.0 L %
(39.0-52.0)
MCV 95.2 H fL
(80.0-94.0)
MCH 33.8 H pg
(27.0-31.0)
Absolute Lymphs (auto) 0.6 L 10^3/uL
(1.2-3.4)
Neutrophils % 81.9 H %
(42.2-75.2)
Lymphocytes % 8.4 L %
(20.5-51.1)
Ur Occult Blood Reflex 4+ A
(Negative)
Leukocyte Esterase Rfl 1+ A
(Negative)
Urine RBC 50-60 A /HPF
(0-2)
Urine Bacteria (Reflex) Few A
(Negative)
Urine Albumin (Reflex) 1+ A
(Neg - Trace)
12/24/23 15:18
12/24/23 15:18
Vital Signs
Initial and Last Documented VS:
Initial Vital Signs
Temp Pulse BP Pulse Ox
97.9 F 100 148/96 96
12/24/23 13:20 12/24/23 13:20 12/24/23 13:20 12/24/23 13:20
Last Documented Vital Signs
Temp Pulse Resp BP Pulse Ox
97.9 F 67 15 110/64 99
12/24/23 17:44 12/24/23 17:44 12/24/23 17:44 12/24/23 17:44 12/24/23 17:44
MDM/Problems Addressed
MDM/Problems Addressed:
63-year-old male with history of radiation cystitis status post prostatectomy for prostate cancer presenting for hematuria and inability to void prior to arrival. Vital signs are normal.
On arrival, patient was able to void. Urine is dark red in color with clots. It is now starting to clear up, red-tinged. Suspect the patient's catheter was clogged blood clot, which is since become dislodged. Patient reports this has been an
ongoing issue, seems to be positional present abdominal pain or instability. Will screen with laboratory analysis to ensure normal hemoglobin. 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
17:00-patient's labs are unremarkable. Patient's catheter continues to drain appropriately, now clear. Given hemodynamic stability and outpatient urology, feel stable for discharge with continued urologic follow-up. Strict return precautions
communicated and patient verbalized understanding
*Critical Care Note
Total Time (30-74mins, 75-104mins- exclusive of procedures): Not Applicable
ED Attending Note
-
Portions of this chart may have been created with voice recognition software.� Occasional wrong word or��sound alike� substitutions may have occurred due to the inherent limitations of voice recognition software.
Discharge Plan
Departure
Patient Disposition: Home (Routine Discharge)
Date of Disposition: 12/24/23
Time of Disposition: 17:11
Patient with high blood pressure during this ER visit?: No
Condition: Good
Discharge Problem:
Hematuria
Prescriptions:
No Action
multivitamin [Multi-Day] 1 EACH tablet
1 ea PO DAILY
atorvastatin 80 MG tablet
80 mg PO HS
aspirin 81 MG tablet,delayed release (DR/EC)
81 mg PO HS
ezetimibe 10 MG tablet
10 mg PO DAILY
nitroglycerin 0.4 MG tablet, sublingual
0.4 mg sublingual [id number] PRN (Reason: chest pain) Qty: 30 3RF
montelukast [Singulair] 10 mg Tablet
10 mg PO QHS
fluticasone propionate 50 mcg/actuation [place],Suspension
1 spray INTRANASAL Q12H
omeprazole 20 mg Tablet,Delayed Release (Dr/Ec)
20 mg PO DAILY
fexofenadine 30 mg Tablet
30 mg DAILY
Referrals:
Angelique San DO [Family Provider] -
Activity Restrictions/Additional Instructions:
You were seen in the emergency department for hematuria
You were found to have normal laboratory analysis and your urine appropriately cleared
Please follow-up closely with your urologist and your primary care physician.
Return to the emergency department for any worsening of your symptoms, including increased blood in your urine, inability to pass your urine through your catheter, or any development of chest pain, difficulty breathing, abdominal pain with
persistent vomiting and inability to tolerate food or liquid by mouth (concern for dehydration), weakness, headache or confusion, fever greater than 100.4, or any additional symptoms that are concerning to you.
Thank you for choosing [facility].
Interventions
Interventions:
*Risk Screen - Suicide Last Done: 12/24/23 13:24
*General Assessment Last Done: 12/24/23 13:24
*Neglect/Abuse Screening Last Done: 12/24/23 13:24
ED- Fall Risk Assessment Last Done: 12/24/23 14:59
*ED COVID-19 Vaccine History Last Done: 12/24/23 14:58
*Nursing Disposition Last Done: 12/24/23 17:44
GN-Cxygno-Hgaxofmjla Assessment Last Done: 12/24/23 15:00
ED-Male Genitourinary Assessment Last Done: 12/24/23 15:00
Discharge Date and Time
Discharge Date/Time: 12/24/23 17:45
Print Language: TURKMEN
[2023-12-24 15:28] LABS: Urine Albumin 1+ (Neg - Trace); Urine Bilirubin Negative (Negative); Urine Character Clear (Clear); Urine Color Red; Urine Glucose Negative (Negative); Urine Ketone Negative (Negative); Urine Leukocyte 1+ (Negative); Urine Nitrite Negative (Negative); Urine Occult Blood 4+ (Negative); Urine Specific Gravity 1.015 (<1.030); Urine Urobilinogen Negative (Neg - 1+)
[2023-12-24 15:29] LABS: % Basophils 0.7 % (0-2); % Immature Granulocytes 0.1 % (0-0.5); % Lymphocytes 8.4 % (20.5-51.1); % Monocytes 6.9 % (1.7-9.3); % Neutrophils 81.9 % (42.2-75.2); Absolute Basophils 0.1 10^3/uL (0-0.2); Absolute Eosinophils 0.2 10^3/uL (0-0.7); Absolute Lymphocytes 0.6 10^3/uL (1.2-3.4); Absolute Monocytes 0.5 10^3/uL (0.1-0.6); Hemoglobin 13.5 g/dL (13.0-18.0); Mean Corp Hgb Conc. 35.5 g/dL (33.0-37.0); Mean Corpuscular Hgb 33.8 pg (27.0-31.0); Mean Corpuscular Volume 95.2 fL (80.0-94.0); Mean Platelet Volume 9.4 fL (7.4-10.4); Nucleated Red Blood Cells % 0 % (-); Platelet Count 317 10^3/uL (130-400); Red Blood Cell Count 3.99 10^6/uL (4.70-6.10); White Blood Cell Count 7.3 10^3/uL (4.8-10.8)
[2023-12-24 15:39] VITALS: BP 106/62
[2023-12-24 15:39] LABS: APTT 27.6 Sec (23.4-35.0); Urine Red Blood Cell 50-60 /HPF (0-2)
[2023-12-24 15:40] LABS: Urine Bacteria Few (Negative)
[2023-12-24 15:41] LABS: ALT (SGPT) 17 U/L (0-50); AST (SGOT) 23 U/L (17-59); Albumin 4.2 g/dl (3.5-5.0); Alkaline Phosphatase 82 U/L (38-126); Blood Urea Nitrogen 11 mg/dl (9-20); Calcium 9.5 mg/dl (8.4-10.2); Carbon Dioxide 30 mmol/L (22-30); Chloride 104 mmol/L (98-107); Estimated Creatinine Clearance 86 ml/min; Glucose 97 mg/dl (70-99); Potassium 4.3 mmol/L (3.5-5.1); Sodium 142 mmol/L (135-145); Total Bilirubin 0.6 mg/dl (0.2-1.3); Total Protein 6.7 g/dl (6.3-8.2); eGFR > 60.00
[2023-12-24 17:44] VITALS: BP 110/64
== END 2023-12-24 17:45 | disposition home or self-care (01) ==
LOC: EMR 13:18
PROVIDERS: EMERGENCY PHYSICIAN Student in an Organized Health Care Education/Training Program; FAMILY PHYSICIAN Family Medicine
DX: R31.9 Hematuria, unspecified (principal); I25.10 Atherosclerotic heart disease of native coronary artery without angina pectoris; E78.00 Pure hypercholesterolemia, unspecified; I25.2 Old myocardial infarction; Z85.46 Personal history of malignant neoplasm of prostate; Z90.79 Acquired absence of other genital organ(s); Z92.3 Personal history of irradiation; Z95.5 Presence of coronary angioplasty implant and graft
CPT/HCPCS: 99282; 96360; 80053; 81003; 81015; 85025; 85610; 85730; 87086

== ENCOUNTER → 2025-01-31 14:45 | Outpatient (REF) | payer BC, SELFPAY | LOC: HWRAD 14:45 | PROVIDERS: ATTENDING PHYSICIAN Orthopaedic Surgery; FAMILY PHYSICIAN Family Medicine | DX: M19.011 Primary osteoarthritis, right shoulder (principal) | CPT/HCPCS: 73200 ==

== ENCOUNTER 2025-02-22 06:37 | Day surgery (SDC) | payer BC, SELFPAY | END 2025-02-22 11:37 | disposition home or self-care (01) | LOC: GI 06:37 | PROVIDERS: ATTENDING PHYSICIAN Student in an Organized Health Care Education/Training Program | DX: Z12.11 Encounter for screening for malignant neoplasm of colon (principal); K57.30 Diverticulosis of large intestine without perforation or abscess without bleeding; D12.0 Benign neoplasm of cecum; D12.2 Benign neoplasm of ascending colon; D12.3 Benign neoplasm of transverse colon; K63.5 Polyp of colon; Z86.0101 Personal history of adenomatous and serrated colon polyps | CPT/HCPCS: 45385; 45380; 88305 ==